=== PATIENT | female | born 2000 | race Hispanic/Latino ===

== ENCOUNTER 2022-06-12 13:13 | Emergency (ER) | payer OTHER, MEDICAID, SELFPAY ==
[2022-06-12] VITALS (11 sets, daily range): BP systolic 92–126; BP diastolic 54–72; PULSE 55–85; RESP 16–18; TEMP 37.1; O2SAT 99–100; BMI 30.9
[2022-06-12 13:42] LABS: Add Manual Diff / Slide Review NO; Basophils Absolute Auto 0 /uL (0-100); Basophils Percent Auto 0.4 % (0-2); Eosinophils Absolute Auto 200 /uL (0-450); Eosinophils Percent Auto 2.2 % (2-4); Hematocrit 42.1 % (36-46); Hemoglobin 14.4 g/dL (12.0-16.0); Lymphocytes Absolute Auto 2100 /uL (1100-4500); Lymphocytes Percent Auto 23.5 % (25-40); Mean Corpuscular HGB Conc 34.3 % (30-36); Mean Corpuscular Hemoglobin 28.4 PG (26-34); Mean Corpuscular Volume 82.9 fL (80-100); Monocytes Absolute Auto 800 /uL (0-900); Monocytes Percent Auto 8.8 % (3-14); Neutrophils Absolute Auto 5900 /uL (1500-7000); Neutrophils Percent Auto 65.1 % (50-75); Platelet Count 273 X10^3/uL (150-400); Red Blood Cell Count 5.07 X10^6/uL (4.0-5.2); Red Cell Distribution Width 13.8 % (11.6-14.8)
[2022-06-12 13:53] LABS: Bacteria Urine None Seen; Culture Indicated Urine Cult Not Indicated; RBC Urine 0-1/HPF (0-5/HPF); Squamous Epithelial Cell Urine None Seen (0-5/HPF); WBC Urine None Seen (0-5/HPF)
[2022-06-12 13:53] LABS: Alanine Aminotransferase 18 IU/L (<35); Albumin 4.6 g/dL (3.5-5.0); Albumin Globulin Ratio 1.2 (1.0-2.8); Alkaline Phosphatase 74 U/L (38-126); Aspartate Aminotransferase 22 IU/L (14-36); Bilirubin Total 0.8 mg/dL (0.2-1.3); Blood Urea Nitrogen 12 mg/dL (7-17); Calcium 9.5 mg/dL (8.4-10.2); Carbon Dioxide 21 mmol/L (22-32); Chloride 108 mmol/L (98-107); Estimated Glomerular Filt Rate > 60 mL/min (>60); Globulin 3.7 g/dL (1.7-4.1); Glucose 98 mg/dL (70-100); HEMOLYSIS < 15 (0-50); Lipase 61 U/L (23-300); Potassium 4.1 mmol/L (3.4-5.1); Sodium 140 mmol/L (137-145); Total Protein 8.3 g/dL (6.3-8.2)
--- NOTE | 2022-06-12 14:29 | ED_ITS ---
HPI - Abdominal Pain <Ngoc Patterson PA-C - Last Filed: 06/12/22 18:24> General Chief Complaint: Abdominal Pain Stated Complaint: ABD PAIN THINKS HERNIA Time Seen by Provider: 06/12/22 14:29 Source: patient Mode of arrival: Ambulatory History of Present Illness HPI narrative: This is a 21-year-old female who endorses a history of heartburn, previous who comes in with concern for intermittent abdominal pain with nausea with symptoms gradually worsening for the past 2 weeks. Patient states her pain has been intermittent, she has been feeling somewhat nauseous but has not been vomiting. She feels it up high in the middle. She also sometimes thinks that her umbilical hernia which she was diagnosed with when she was is acting up, sometimes she feels pain right in the middle of her belly in the last few weeks and she states sometimes she feels like there is a bump there. She did not notice this last night when her pain was bad. She has difficulty describing her pain but does state that it is worse with eating, she states her appetite has been a little bit less and she has to smoke pot to want to have much desire to eat. After she eats she feels somewhat nauseous. She states the pain has been gradually increasing last night it was really bad she says it was a 9/10 when she was laying in bed when she sat up it got a lot better. Currently she states it is about a 3/10. Patient does state her children have had diarrhea recently. She thinks although she is not sure that 2 weeks ago when her discomfort 1st started she may have had some diarrhea and some vomiting. She has been having normal bowel movements for awhile she says she is a bowel movement every 2 days, these have been normal for her and denies having blood or mucus in them. She acknowledges she was she was seen at [facility] earlier today where they did an abdominal x-ray and some labs. But told her everything looked okay. She denies fevers, chills, nausea, vomiting, diarrhea, flank pain, dysuria or any other symptoms. Related Data Previous Rx's Medication Instructions Recorded pantoprazole 20 mg tablet,delayed 20 mg PO DAILY reflux #30 tabs 06/12/22 release Allergies Allergy/AdvReac Type Severity Reaction Status Date / Time No Known Drug Allergies Allergy Verified 06/12/22 13:26 Review of Systems <Ngoc Patterson PA-C - Last Filed: 06/12/22 18:24> Review of Systems Narrative: See HPI Patient History <Ngoc Patterson PA-C - Last Filed: 06/12/22 18:24> Social History Smoking Status: Current every day smoker Smoking Status: Current every day smoker tobacco type: vaping alcohol intake frequency: a few times a week Substance Use Type: marijuana Exam <Ngoc Patterson PA-C - Last Filed: 06/12/22 18:24> Narrative Exam Narrative: GENERAL: 21 year old patient appears stated age. Obese, Well-developed patient, in mild distress. HEAD: Atraumatic. Normocephalic. EYES: Pupils equal round and reactive. Extraocular motions intact. No scleral icterus. No injection or drainage. ENT: Nose without bleeding, purulent drainage. Airway patent. NECK: Trachea midline. Non tender CARDIOVASCULAR: Regular rate and rhythm without murmurs, gallops, or rubs. RESPIRATORY: Clear to auscultation. Breath sounds equal bilaterally. No wheezes, rales, or rhonchi. GASTROINTESTINAL: Abdomen soft, there is very slight epigastric tenderness, otherwise non-tender, nondistended, no palpable umbilical hernia, no CVA tenderness. EXTREMITIES: No edema or joint tenderness. BACK: Nontender without deformity or crepitance. No flank tenderness. NEURO: AOx3. SKIN: No rash or erythema of visible areas Initial Vital Signs Initial Vital Signs: Vital Signs Temperature 98.8 F 06/12/22 13:21 Pulse Rate 85 06/12/22 13:21 Respiratory Rate 18 06/12/22 13:21 Blood Pressure 126/64 06/12/22 13:21 Pulse Oximetry 99 06/12/22 13:21 Oxygen Delivery Method Room Air 06/12/22 13:21 <Evette Esteban DO - Last Filed: 06/13/22 08:02> Initial Vital Signs Initial Vital Signs: Vital Signs Temperature 98.8 F 06/12/22 13:21 Pulse Rate 85 06/12/22 13:21 Respiratory Rate 18 06/12/22 13:21 Blood Pressure 126/64 06/12/22 13:21 Pulse Oximetry 99 04/08/23 13:21 Oxygen Delivery Method Room Air 06/12/22 13:21 Course <Ngoc Patterson PA-C - Last Filed: 06/12/22 18:24> Course Course Narrative: Requested results from [facility] the patient was seen there earlier today, they did do an abdominal x-ray with normal bowel gas pattern findings possibly consistent with gastroenteritis. 15:05 audiometric technician advised she did not see evidence of an abdominal/Umbilical hernia 1600 Patient advised that the medications he received for GERD/reflux did help with her pain and discomfort. 1720 Orders Ordered: Discontinued Medications Al Hydrox/Mg Hydrox/Simethicone 20 ml/ Lidocaine HCl 15 ml 0 ml PO NOW ONE Stop: 06/12/22 15:16 Last Admin: 06/12/22 15:34 Dose: 35 ml Documented By: RB Sodium Chloride (Normal Saline 0.9%) 1,000 mls @ 1,000 mls/hr IV BOLUS ONE Stop: 06/12/22 16:14 Last Infusion: 06/12/22 17:17 Dose: 0 mls/hr Documented By: Admin: 06/12/22 15:28 Dose: 1,000 mls/hr Documented By: RB Pantoprazole Sodium (Pantoprazole 40 Mg Vial) 40 mg IV NOW ONE Stop: 06/12/22 15:16 Last Admin: 06/12/22 15:29 Dose: 40 mg Documented By: MOY Vital Signs Vital signs: Vital Signs - 8 hr 06/12/22 13:21 06/12/22 14:07 06/12/22 14:08 Temperature 98.8 F Pulse Rate 85 62 Respiratory Rate 18 Blood Pressure 126/64 101/54 L Pulse Oximetry 99 99 Oxygen Delivery Method Room Air 06/12/22 14:08 06/12/22 14:30 06/12/22 14:30 Temperature Pulse Rate 59 L Respiratory Rate Blood Pressure 92/58 L Pulse Oximetry 99 100 Oxygen Delivery Method 06/12/22 15:00 06/12/22 15:00 06/12/22 15:29 Temperature Pulse Rate 70 Respiratory Rate Blood Pressure 93/60 Pulse Oximetry 99 99 Oxygen Delivery Method 06/12/22 15:31 06/12/22 15:34 06/12/22 16:00 Temperature Pulse Rate 82 Respiratory Rate Blood Pressure 96/57 L 99/59 L Pulse Oximetry 99 Oxygen Delivery Method 06/12/22 16:00 06/12/22 16:30 06/12/22 16:30 Temperature Pulse Rate 60 Respiratory Rate Blood Pressure 111/63 Pulse Oximetry 100 100 Oxygen Delivery Method 06/12/22 17:58 Temperature Pulse Rate 55 L Respiratory Rate 16 Blood Pressure 114/72 Pulse Oximetry 100 Oxygen Delivery Method Room Air <Evette Esteban, - Last Filed: 06/13/22 08:02> Orders Ordered: Discontinued Medications Al Hydrox/Mg Hydrox/Simethicone 20 ml/ Lidocaine HCl 15 ml 0 ml PO NOW ONE Stop: 06/12/22 15:16 Last Admin: 06/12/22 15:34 Dose: 35 ml Documented By: RB Sodium Chloride (Normal Saline 0.9%) 1,000 mls @ 1,000 mls/hr IV BOLUS ONE Stop: 06/12/22 16:14 Last Infusion: 06/12/22 17:17 Dose: 0 mls/hr Documented By: Admin: 06/12/22 15:28 Dose: 1,000 mls/hr Documented By: RB Pantoprazole Sodium (Pantoprazole 40 Mg Vial) 40 mg IV NOW ONE Stop: 06/12/22 15:16 Last Admin: 06/12/22 15:29 Dose: 40 mg Documented By: RB Vital Signs Vital signs: Vital Signs - 8 hr 06/12/22 13:21 06/12/22 14:07 06/12/22 14:08 Temperature 98.8 F Pulse Rate 85 62 Respiratory Rate 18 Blood Pressure 126/64 101/54 L Pulse Oximetry 99 99 Oxygen Delivery Method Room Air 06/12/22 14:08 06/12/22 14:30 06/12/22 14:30 Temperature Pulse Rate 59 L Respiratory Rate Blood Pressure 92/58 L Pulse Oximetry 99 100 Oxygen Delivery Method 06/12/22 15:00 06/12/22 15:00 06/12/22 15:29 Temperature Pulse Rate 70 Respiratory Rate Blood Pressure 93/60 Pulse Oximetry 99 99 Oxygen Delivery Method 06/12/22 15:31 06/12/22 15:34 06/12/22 16:00 Temperature Pulse Rate 82 Respiratory Rate Blood Pressure 96/57 L 99/59 L Pulse Oximetry 99 Oxygen Delivery Method 06/12/22 16:00 06/12/22 16:30 06/12/22 16:30 Temperature Pulse Rate 60 Respiratory Rate Blood Pressure 111/63 Pulse Oximetry 100 100 Oxygen Delivery Method 06/12/22 17:58 Temperature Pulse Rate 55 L Respiratory Rate 16 Blood Pressure 114/72 Pulse Oximetry 100 Oxygen Delivery Method Room Air MDM - Abdominal Pain <Ngoc Patterson PA-C - Last Filed: 06/12/22 18:24> Differential Diagnosis Differential diagnosis: Likely abdominal pain, gastroenteritis and other (viral illness, GERD, reflux) Medical Records Attestation: I reviewed the patient's medical records. Lab Data Attestation: I reviewed the patient's lab results. 06/12/22 13:30 06/12/22 13:30 Labs: Lab Results 06/12/22 06/12/22 06/12/22 Range/Units 13:24 13:30 13:30 WBC 9.0 (4.5-11.0) X10^3/uL RBC 5.07 (4.0-5.2) X10^6/uL Hgb 14.4 (12.0-16.0) g/dL Hct 42.1 (36-46) % MCV 82.9 (80-100) fL MCH 28.4 (26-34) PG MCHC 34.3 (30-36) % RDW 13.8 (11.6-14.8) % Plt Count 273 (150-400) X10^3/uL Neut % (Auto) 65.1 (50-75) % Lymph % (Auto) 23.5 L (25-40) % [place] % (Auto) 8.8 (3-14) % Eos % (Auto) 2.2 (2-4) % Baso % (Auto) 0.4 (0-2) % Neut # (Auto) 5900 (6307-1766) /uL Lymph # (Auto) 2100 (3780-3939) /uL [place] # (Auto) 800 (0-900) /uL Eos # (Auto) 200 (0-450) /uL Baso # (Auto) 0 (0-100) /uL Sodium 140 (137-145) mmol/L Potassium 4.1 (3.4-5.1) mmol/L Chloride 108 H (98-107) mmol/L Carbon Dioxide 21 L (22-32) mmol/L BUN 12 (7-17) mg/dL Creatinine 0.50 L (0.52-1.04) mg/dL Estimated GFR > 60 (>60) mL/min BUN/Creatinine Ratio 24.0 H (6-22) Glucose 98 (70-100) mg/dL Calcium 9.5 (8.4-10.2) mg/dL Total Bilirubin 0.8 (0.2-1.3) mg/dL AST 22 (14-36) IU/L ALT 18 (<35) IU/L Alkaline Phosphatase 74 (38-126) U/L Total Protein 8.3 H (6.3-8.2) g/dL Albumin 4.6 (3.5-5.0) g/dL Globulin 3.7 (1.7-4.1) g/dL Albumin/Globulin Ratio 1.2 (1.0-2.8) Lipase 61 (23-300) U/L HCG, Quant mIU/mL Urine RBC 0-1/hpf (0-5/HPF) Urine WBC None seen (0-5/HPF) Ur Squamous Epith Cells None seen (0-5/HPF) Urine Bacteria None seen (None) Ur Culture Indicated? Cult not indicated 06/12/22 Range/Units 13:30 WBC (4.5-11.0) X10^3/uL RBC (4.0-5.2) X10^6/uL Hgb (12.0-16.0) g/dL Hct (36-46) % MCV (80-100) fL MCH (26-34) PG MCHC (30-36) % RDW (11.6-14.8) % Plt Count (150-400) X10^3/uL Neut % (Auto) (50-75) % Lymph % (Auto) (25-40) % [place] % (Auto) (3-14) % Eos % (Auto) (2-4) % Baso % (Auto) (0-2) % Neut # (Auto) (0400-8831) /uL Lymph # (Auto) (1486-7593) /uL [place] # (Auto) (0-900) /uL Eos # (Auto) (0-450) /uL Baso # (Auto) (0-100) /uL Sodium (137-145) mmol/L Potassium (3.4-5.1) mmol/L Chloride (98-107) mmol/L Carbon Dioxide (22-32) mmol/L BUN (7-17) mg/dL Creatinine (0.52-1.04) mg/dL Estimated GFR (>60) mL/min BUN/Creatinine Ratio (6-22) Glucose (70-100) mg/dL Calcium (8.4-10.2) mg/dL Total Bilirubin (0.2-1.3) mg/dL AST (14-36) IU/L ALT (<35) IU/L Alkaline Phosphatase (38-126) U/L Total Protein (6.3-8.2) g/dL Albumin (3.5-5.0) g/dL Globulin (1.7-4.1) g/dL Albumin/Globulin Ratio (1.0-2.8) Lipase (23-300) U/L HCG, Quant < 2.4 mIU/mL Urine RBC (0-5/HPF) Urine WBC (0-5/HPF) Ur Squamous Epith Cells (0-5/HPF) Urine Bacteria (None) Ur Culture Indicated? Point of care testing: Point of Care Testing Test Results Negative Urine Dip Bedside Urine Glucose Negative Bedside Urine Bilirubin - Negative Bedside Urine Ketone - Negative Urine Specific Maurice 1.020 Bedside Urine Occult Blood + Bedside Urine pH 6.0 Bedside Urine Protein - Negative Bedside Urine Urobilinogen - Negative Bedside Urine Nitrite - Negative Bedside Urine Leukocytes - Negative Esterase Imaging Data US abd: Radiologist's Impression: [address] [address] Ultrasound Report Signed Patient: Lynda Perla MR#: [id number] : 2000 Acct:[id number] Age/Sex: 21 / F Date of Service: 06/12/22 Loc: ED Accession Number: [id number] ?? Procedure: US abdomen limited Ordering Provider: Ngoc Patterson P.A-C PROCEDURE: US ABDOMEN LIMITED ? INDICATIONS:? POSSIBLE UMBILICAL HERNIA ? TECHNIQUE:? Real-time focused scanning was performed of the abdomen, with image documentation.? ? COMPARISON:? None. ? FINDINGS:? ? There is no suspicious mass.? No evidence of hernia with or without Valsalva ? IMPRESSION:? ? No hernia identified. ? ? Dictated by: Masoud Atkinson D.O. on 06/12/2022 at 15:14 ? ? Approved by: Masoud Atkinson D.O. on 06/12/2022 at 15:15?? <Evette Esteban, - Last Filed: 06/13/22 08:02> Lab Data Labs: Lab Results 06/12/22 06/12/22 06/12/22 Range/Units 13:24 13:30 13:30 WBC 9.0 (4.5-11.0) X10^3/uL RBC 5.07 (4.0-5.2) X10^6/uL Hgb 14.4 (12.0-16.0) g/dL Hct 42.1 (36-46) % MCV 82.9 (80-100) fL MCH 28.4 (26-34) PG MCHC 34.3 (30-36) % RDW 13.8 (11.6-14.8) % Plt Count 273 (150-400) X10^3/uL Neut % (Auto) 65.1 (50-75) % Lymph % (Auto) 23.5 L (25-40) % [place] % (Auto) 8.8 (3-14) % Eos % (Auto) 2.2 (2-4) % Baso % (Auto) 0.4 (0-2) % Neut # (Auto) 5900 (7192-5009) /uL Lymph # (Auto) 2100 (3897-0308) /uL [place] # (Auto) 800 (0-900) /uL Eos # (Auto) 200 (0-450) /uL Baso # (Auto) 0 (0-100) /uL Sodium 140 (137-145) mmol/L Potassium 4.1 (3.4-5.1) mmol/L Chloride 108 H (98-107) mmol/L Carbon Dioxide 21 L (22-32) mmol/L BUN 12 (7-17) mg/dL Creatinine 0.50 L (0.52-1.04) mg/dL Estimated GFR > 60 (>60) mL/min BUN/Creatinine Ratio 24.0 H (6-22) Glucose 98 (70-100) mg/dL Calcium 9.5 (8.4-10.2) mg/dL Total Bilirubin 0.8 (0.2-1.3) mg/dL AST 22 (14-36) IU/L ALT 18 (<35) IU/L Alkaline Phosphatase 74 (38-126) U/L Total Protein 8.3 H (6.3-8.2) g/dL Albumin 4.6 (3.5-5.0) g/dL Globulin 3.7 (1.7-4.1) g/dL Albumin/Globulin Ratio 1.2 (1.0-2.8) Lipase 61 (23-300) U/L HCG, Quant mIU/mL Urine RBC 0-1/hpf (0-5/HPF) Urine WBC None seen (0-5/HPF) Ur Squamous Epith Cells None seen (0-5/HPF) Urine Bacteria None seen (None) Ur Culture Indicated? Cult not indicated 06/12/22 Range/Units 13:30 WBC (4.5-11.0) X10^3/uL RBC (4.0-5.2) X10^6/uL Hgb (12.0-16.0) g/dL Hct (36-46) % MCV (80-100) fL MCH (26-34) PG MCHC (30-36) % RDW (11.6-14.8) % Plt Count (150-400) X10^3/uL Neut % (Auto) (50-75) % Lymph % (Auto) (25-40) % [place] % (Auto) (3-14) % Eos % (Auto) (2-4) % Baso % (Auto) (0-2) % Neut # (Auto) (0782-9371) /uL Lymph # (Auto) (3468-2104) /uL [place] # (Auto) (0-900) /uL Eos # (Auto) (0-450) /uL Baso # (Auto) (0-100) /uL Sodium (137-145) mmol/L Potassium (3.4-5.1) mmol/L Chloride (98-107) mmol/L Carbon Dioxide (22-32) mmol/L BUN (7-17) mg/dL Creatinine (0.52-1.04) mg/dL Estimated GFR (>60) mL/min BUN/Creatinine Ratio (6-22) Glucose (70-100) mg/dL Calcium (8.4-10.2) mg/dL Total Bilirubin (0.2-1.3) mg/dL AST (14-36) IU/L ALT (<35) IU/L Alkaline Phosphatase (38-126) U/L Total Protein (6.3-8.2) g/dL Albumin (3.5-5.0) g/dL Globulin (1.7-4.1) g/dL Albumin/Globulin Ratio (1.0-2.8) Lipase (23-300) U/L HCG, Quant < 2.4 mIU/mL Urine RBC (0-5/HPF) Urine WBC (0-5/HPF) Ur Squamous Epith Cells (0-5/HPF) Urine Bacteria (None) Ur Culture Indicated? Point of care testing: Point of Care Testing Test Results Negative Urine Dip Bedside Urine Glucose Negative Bedside Urine Bilirubin - Negative Bedside Urine Ketone - Negative Urine Specific [place] 1.020 Bedside Urine Occult Blood + Bedside Urine pH 6.0 Bedside Urine Protein - Negative Bedside Urine Urobilinogen - Negative Bedside Urine Nitrite - Negative Bedside Urine Leukocytes - Negative Esterase Discharge Plan Departure Patient Disposition: Home Clinical Impression: Acid reflux, Abdominal pain Instructions: DI for Dyspepsia Activity Restrictions/Additional Instructions: Thank you for letting us be part of your care today in the emergency department. Based on your exam, description of your symptoms and duration of your symptoms I strongly suspect that you have a problem with acid reflux that is at least partly responsible for the abdominal pain and discomfort you have been having. Until you are improved it may help you to sleep not completely flat, I am prescribing medication that should help with her symptoms the medications we gave you in the emergency department today were helpful. We did also do an ultrasound to evaluate your known umbilical hernia but nothing was noted on the ultrasound exam. I do not think that this is likely the source of your pain even having intermittently for the last few weeks. you should be cautious about the types of foods UR eating, it is probably better to avoid spicy foods or highly acidic foods until your symptoms are improved. I would like you to follow-up with your primary care provider and if you are having persistent symptoms you may want to see a glueline worker for further evaluation. We did not do advanced imaging today so of course if you feel your having new or worsening symptoms it is reasonable to get re-evaluated. There is no evidence of an emergent or life threatening illness at this time, but follow up with your doctor in 1-2 days is recommended nonetheless to continue to rule out serious underlying causes of your symptoms. Please call the office for an appointment. Please return to the Emergency Department for any worsening or persistent symptoms. Please take medications as directed. Prescriptions: New pantoprazole 20 mg tablet,delayed release (DR/EC) 20 mg PO DAILY Qty: 30 0RF Stand Alone Forms: Patient Portal/API <Evetet Esteban DO - Last Filed: 06/13/22 08:02> Cosign ED Attending Sanderature Attestation: I was immediately available in the department for consultation.
--- NOTE | 2022-06-12 14:41 | DI.US.S_ITS ---
PROCEDURE: US ABDOMEN LIMITED INDICATIONS: POSSIBLE UMBILICAL HERNIA TECHNIQUE: Real-time focused scanning was performed of the abdomen, with image documentation. COMPARISON: None. FINDINGS: There is no suspicious mass. No evidence of hernia with or without Valsalva IMPRESSION: No hernia identified. Dictated by: Masoud Atkinson D.O. on 06/12/2022 at 15:14 Approved by: Masoud Atkinson D.O. on 06/12/2022 at 15:15
[2022-06-12] MEDS: SODIUM CHLORIDE 0.9% 1,000 ML 1000 ML IV (15:28)
[2022-06-12] MEDS: PANTOPRAZOLE 40 MG VIAL IV (15:29)
[2022-06-12] MEDS: MAG HYDROX/ALUMINUM/SIMETH SUS 20 ML, LIDOCAINE VISCOUS 2% 15 ML PO (15:34)
[2022-06-12 15:49] LABS: HCG Quantitative /Beta subunit < 2.4 mIU/mL
== END 2022-06-12 18:01 | disposition home or self-care (01) ==
PROVIDERS: Emergency Medicine; Emergency Provider Student in an Organized Health Care Education/Training Program
DX: K21.9 Gastro-esophageal reflux disease without esophagitis (principal); R10.9 Unspecified abdominal pain
CPT/HCPCS: 36415; 76705; 80053; 81003; 81015; 81025; 83690; 84702; 85025; 96361; 96374; 99284; C9113